=== PATIENT | male | born 1970 | race Caucasian/White ===

== ENCOUNTER 2024-09-21 11:10 | Outpatient (CLI) | payer BC, SELFPAY | END 2024-09-21 11:11 | disposition home or self-care (01) | LOC: LKVREF 11:11 | PROVIDERS: PCP Family Medicine; Visit Provider Family Medicine | DX: D61.818 Other pancytopenia (principal); K74.60 Unspecified cirrhosis of liver; Z13.21 Encounter for screening for nutritional disorder; Z12.5 Encounter for screening for malignant neoplasm of prostate | CPT/HCPCS: 80053; 80061; 82607; 82728; 83540; 83550; G0103 ==

== ENCOUNTER 2024-09-25 08:09 | Outpatient (CLI) | payer BC, SELFPAY ==
--- NOTE | 2024-09-25 08:15 | CRLHL7_ITS ---
For Patients: As a result of the Century Cures Act, medical imaging exams and procedure reports are released immediately into your electronic medical record. You may view this report before your referring provider. If you have questions, please contact your health care provider. INDICATION: Unspecified cirrhosis of the liver. TECHNIQUE: Ultrasound abdomen limited. Sonographic images of the right upper quadrant were obtained using adams-scale and color Doppler images. COMPARISON: None. FINDINGS: Liver: Cirrhotic liver morphology with coarse, heterogeneous echotexture. No suspicious masses. No intrahepatic biliary dilatation. Main portal vein is patent with hepatopedal flow. Gallbladder: No stones. Small hyperechoic focus measuring 1.2 x 0.4 x 0.7 cm with no internal vascularity. Normal wall thickness. No pericholecystic fluid. Common bile duct: 5 mm. Pancreas: Pancreatic head and body are unremarkable. Tail is not well seen secondary to bowel gas. Right kidney: Normal in size. Normal echotexture and cortex. No suspicious masses, stones, or hydronephrosis. Ascites: None visualized. IMPRESSION: 1. Cirrhotic liver morphology. No solid mass. 2. Small hyperechoic focus in the gallbladder measuring 1.2 x 0.4 x 0.7 cm with no internal vascularity and no suspicious features, likely adherent sludge. Dictated by Yamini Singleton MD @ 09/26/2024 12:27:31 AM (Electronically Signed)
== END 2024-09-25 08:10 | disposition home or self-care (01) ==
PROVIDERS: PCP Family Medicine; Visit Provider Family Medicine
DX: K74.60 Unspecified cirrhosis of liver (principal)
CPT/HCPCS: 76705

== ENCOUNTER 2024-10-03 13:48 | Outpatient (RCR) | payer BC, SELFPAY ==
[2024-10-03 15:09] LABS: Immature Reticulocyte Fraction 10.8 % (2.3-13.4); Reticulocyte Hemoglobin Equivi 33.8 pg (29.0-35.0); Reticulocytes Absolute 0.13 # (0.03-0.08)
[2024-10-03 15:26] LABS: INR 1.34 (0.91-1.10); Prothrombin Time 17.5 Seconds
[2024-10-03 17:03] LABS: Hepatitis B Surface Antigen* Negative (Negative)
[2024-10-03 17:14] LABS: HIV 1/2/P24 Combo Screen* Negative (Negative)
[2024-10-03 17:21] LABS: Hepatitis C Virus Antibody* Negative (Negative)
[2024-10-05 03:31] LABS: Folate, Serum 16.2 ng/mL (>=5.9)
[2024-10-05 11:46] LABS: Immunoglobulin A 886 mg/dL (68-408); Immunoglobulin G 1602 mg/dL (768-1632); Immunoglobulin M 29 mg/dL (35-263)
--- NOTE | 2024-10-05 13:01 | ONC.NURNOTE ---
Left message with pt stating lab will need to redraw a copper level prior to his appt with Dr. Hess. Encouraged pt to call back and schedule.
[2024-10-06 15:51] LABS: Hepatitis B Core Antibody, IgM Negative (Negative)
== END 2025-04-01 23:59 | disposition home or self-care (01) ==
LOC: CCIC 13:48
PROVIDERS: PCP Family Medicine; Visit Provider Internal Medicine Hematology & Oncology
DX: K74.60 Unspecified cirrhosis of liver (principal); D61.818 Other pancytopenia; D69.3 Immune thrombocytopenic purpura
CPT/HCPCS: 36415; 82105; 82525; 82746; 82784; 84443; 85045; 85610; 86703; 86705; 86803; 87340; 99202; 99205